=== PATIENT | male | born 1955 | race Hispanic/Latino ===

== ENCOUNTER 2017-05-21 12:07 | Emergency (ER) | payer OTHER ==
[~2017-05-21] VITALS: Ht 162.6 cm; Wt 81.6 kg
[~2017-05-21 12:07] MED LIST: ALBUTEROL0.09 MG/A1 INH; CEFTIN500 MG PO; FLOVENT HF0.044 MG/A INH; MEDROL DOSEPAK1 PAC PO; NASONEX0.05 MG/Ac NAS; ROBITUSSIN AC SY5 ML PO; ROBITUSSIN W/CO10 ML PO; ZITHROMAX Z-PA250 M1 PO
[2017-05-21 12:34] VITALS: BP 143/91
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
--- NOTE | 2017-05-21 14:40 | RADIOLOGY REPORT ---
EXAMINATION: Lumbar spine, left foot and left ankle. CLINICAL INFORMATION: Status post fall. COMPARISON: Left foot 03/13/2015. TECHNIQUE: 4 views lumbar spine. 3 views left foot and 3 views left ankle. FINDINGS: LEFT FOOT: There is no visible acute fracture, dislocation subluxation. Mild hallux valgus deformity first MTP joint is noted. Mild dorsal tarsal and tarsal joint spurring is seen. LEFT ANKLE: There is no visible acute fracture or dislocation. There is a small calcaneal heel and retrocalcaneal spurs. The ankle mortise and subtalar joints are normal. LUMBAR SPINE: There is normal lumbar lordosis. Loss of L5-S1 disc height with vacuum disc phenomena and mild ventral spondylosis seen. Rest of the disc heights are normal. The vertebral heights and alignment is preserved. Mild ventral spondylosis at L4-L5 disc level is noted as well. Visualized bilateral SI joints and the sacrum appears unremarkable. IMPRESSION: Mild hallux valgus deformity first MTP joint. No visible fracture or dislocation seen left foot or left ankle. Small calcaneal heel and retrocalcaneal spurs. Vacuum degenerative changes L5-S1 disc level.
== END 2017-05-21 15:28 ==
LOC: ERH 12:07
DX: S09.90XA Unspecified injury of head, initial encounter (principal); S93.601A Unspecified sprain of right foot, initial encounter; M54.5 Low back pain; W19.XXXA Unspecified fall, initial encounter; Y92.9 Unspecified place or not applicable; Y93.9 Activity, unspecified
CPT/HCPCS: 72110; 73610-LT; 73630-LT